=== PATIENT | male | born 1990 | race Caucasian/White ===

== ENCOUNTER 2018-04-10 16:22 | Observation (INO) | payer MEDICAID, SELFPAY ==
--- NOTE | 2018-04-10 16:32 | HP.PCM_ITS ---
Problem List (1) Acute narcotic withdrawal Status: Acute (2) Heroin abuse Status: Acute (3) Xanax use disorder, mild, in sustained remission, abuse Status: Resolved (4) Tobacco use Status: Chronic (5) History of intravenous drug abuse Status: Resolved (6) Anxiety and depression Status: Chronic History of Present Illness Date of Admission: 04/10/18 Chief Complaint: Acute Opiate Withdrawal The patient is a 27 y/o M w/ PMHx: Depression/Anxiety, Tobacco use, History of Cannabis use most recently 3 months prior, History of Xanax abuse most recently 5 years prior, Ongoing Chronic Heroine usage, snorting currently but prior IVDA history w/ usually 1 gm daily who presents to the [facility] at [facility] on 04/10/18 w/ noted opiate withdrawal onset starting this AM following last dose ~ 10 hours prior with abdominal pain/cramping, generalized body aches and pains, rhinorrhea, piloerection, fatigue, restless leg, sweating, yawning. Patient interested in attaining clean status. He has been in treatment similar to current evaluation twice prior. He is currently homeless and living in his car. 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 Past Medical History Past Medical History (Chronic Problems): Chronic Problems Tobacco use (Chronic) Anxiety and depression (Chronic) NKDA Home Medications: Ambulatory Orders Medication Instructions Recorded NK 04/10/18 Surgical History: no surgical history Psychiatric History: Anxiety, Depression Lives: Homeless - Currently living in his car. Smoking Status: Current every day smoker - 1/2 ppd Tobacco Use: Cigarettes Alcohol: None Drugs: Heroin, Marijuana - *Family History Maternal History Items: - - Maternal family history of breast cancer. Paternal History Items: - - Paternal family history of some form of brain cancer. Review of Systems Constitutional: Reports: Anorexia, Malaise, Weakness, Fatigue. Denies: Chills, Fever, Weight Change HEENT: Reports: Nasal Congestion, Post Nasal Drip, Sinus Congestion. Denies: Head Aches, Sinus Drainage Cardiovascular: Denies: Chest Pain, Palpitations Respiratory: Denies: Cough, Shortness of breath at rest, Sputum production Gastrointestinal: Reports: Abdominal Pain, Diarrhea, Nausea. Denies: Vomiting Genitourinary: Denies: Dysuria Musculoskeletal: Reports: Joint Pain, Muscle pain. Denies: Joint Tenderness Skin: Denies: Rash, Wounds Neurological: Denies: Numbness, Tingling, Focal weakness Psychiatric: Reports: Anxiety, Depression. Denies: Homicidal Ideations, Suicidal Ideations Hematologic/ Lymphatic: Denies: Easy Bruising, Easy Bleeding VTE Information - Inpt Only VTE Present on Admission: No VTE Mechan Device Prophylaxis: None VTE Pharm Prophylaxis ordered?: No Reason prophylaxis not ordered:: Treatment Not Indicated Patient Problems: Active and Suspected Problems Acute narcotic withdrawal (Acute) Heroin abuse (Acute) Subjective: Seated upright, anxious, yawning, mildly agitated, fatigued appearing. Objective: Physical Examination: General: awake, alert, oriented x 3 and cooperative, seated upright, fatigued and mildly ill appearing, yawning. Skin: normal color, turgor, no icterus, cyanosis. HEENT: AT/NC, EOMI, PERRLA, mildly dry MM, no carotid bruits or JVD noted. Lungs: CTA bilaterally, moderate effort, mild decrease BL bases, no rales, ronchi or wheezing. Heart: Mildly tachycardic regular rate and rhythm; no gallop, rub audible. Abdomen: soft, mild generalized discomfort w/ palpation, ND, mildly hyperactive BS, no HSM. Extremities: no cyanosis, clubbing, or edema. Neurological: patient awake, alert, oriented x 3; cognitive function appears baseline intact; pupils equally reactive to light and accomodation; cranial nerves II-XII grossly normal, moving all 4 extremities, no focal deficits, strength mildly to moderately globally decreased secondary to acute presenta tion. Psychiatric: affect appears fatigued, no acute evidence of depressive or anxiety feelings. Assessment/Plan All Active Problems Acute narcotic withdrawal (Acute) Heroin abuse (Acute) Xanax use disorder, mild, in sustained remission, abuse (Resolved) History of intravenous drug abuse (Resolved) The patient is a 28 y/o M w/ PMHx: Depression/Anxiety, Tobacco use, History of Cannabis use most recently 3 months prior, History of Xanax abuse most recently 5 years prior, Ongoing Chronic Heroine usage, snorting currently but prior IVDA history w/ usually 1 gm daily who presents to the [facility] at [facility] on 04/10/18 w/ noted acute opiate withdrawal. (1) Acute Opiate Withdrawal: Will admit to [place], obtain routine labs including CBC, CMP, urine for drug screen, urinalysis, serum lipase, routine EKG and will initiate and continue on [facility] service protocol with tapering course of Subutex, as needed Seroquel, Librium, Sinemet, Catapres, Bentyl, Vistaril, IV fluids, IV antiemetics, Tylenol as needed for pain. Once patient clinically improved and completion of taper nearing will plan [facility] assistance for transition to next level of rehabilitation care. (2) Polysubstance Abuse, IVDA Hx: Patient notes remote history of prior IVDA, not currently. Will obtain HIV and hepatitis panel. Discussed concept that if returned hepatitis C positive, patient would be a canididate for hep C treatment currently if clean, sober x 6 months, documented attendance NA or AA meetings, counseling and ongoing negative drug screens. Encouraged PCP establishment and follow-up. (3) Tobacco Abuse: Encouraged cessation, inpatient consultation per RT, NR if desired. (4) Anxiety and Depression: Not on treatment, would benefit from consideration SSRI. Need to avoid BZD usage given history. (5) DVT Prophylaxis: Low risk, ambulation. Code Visit Inpatient E&M: 24014 Init Hosp L3
[2018-04-10 16:51] VITALS: BMI 25.0
[2018-04-10 16:58] VITALS: BP 128/91; PULSE 74; RESP 14; TEMP 36.6
[2018-04-10 17:08] LABS: Absolute Lymphocyte Count 3.36 X10^3/ul (0.83-4.51); Absolute Neutrophil Count 3.6 X10^3/uL (2.0-7.7); Basophil# 0.03 X10^3/uL; Basophil% 0.4 % (0-1); Eosinophil# 0.23 X10^3/uL; Eosinophils% 2.9 % (0-5); Hematocrit 42.6 % (40-54); Hemoglobin 14.3 g/dl (13.0-16.5); Lymphocyte # 3.36 X10^3/ul (4.0); Mean Corp Hgb Conc 33.6 g/gl (32-36); Mean Corpuscular Hgb 29.3 pg (27.0-32.0); Mean Corpuscular Volume 87.3 fL (80-94); Mean Platelet Vol. 9.7 fl (6.2-12.0); Monocyte# 0.61 X10^3/uL; Monocyte% 7.8 % (0-10); Neutrophil # 3.55 X10^3/uL (2.7-7.7); Neutrophil % 45.5 % (47-70); Platelet Count 247 K/mm3 (150-450); RBC Distribution Width CV 12.5 % (11.6-14.6); RBC Distribution Width SD 39.9 fl (35.1-43.9); Red Blood Count 4.88 M/mm3 (4.6-6.2); White Blood Count 7.8 K/mm3 (4.4-11.0)
[2018-04-10 17:09] LABS: POSITIVE COUNT NO; POSITIVE DIFFERENTIAL NO; POSITIVE MORPHOLOGY NO
[2018-04-10 17:13] LABS: Prothrombin Time (Protime)PT. 13.1 SECONDS (11.7-14.9)
[2018-04-10] MEDS: Buprenorphine HCl 2 MG TAB.SUBL SL (17:19)
[2018-04-10] MEDS: Lactated Ringers 1,000 ML 125 ML IV (17:37)
[2018-04-10 17:42] LABS: ALB/GLOB Ratio 1.3 RATIO (0.9-2.4); AST(SGOT) 15 U/L (15-37); Alanine Aminotransfer ALT/SGPT 36 U/L (16-61); Alkaline Phosphatase 96 U/L (45-117); Amylase 54 U/L (25-115); Anion Gap 4 (5-15); BUN 13 mg/dL (7-18); BUN/Creat Ratio 17.1 RATIO (10-20); Calcium,Total 8.9 mg/dL (8.5-10.1); Chloride 105 mmol/L (98-107); Creatinine, Serum 0.76 mg/dL (0.70-1.30); EST Glomerular Filtration Rate 131 mL/min (>60); Est Glom Filt Rate - Afr Amer 158 mL/min (>60); Estimated Creatinine Clearance 132.92 ml/min; Globulin 3.1 g/dL (2.2-4.2); Glucose 94 mg/dL (74-106); Lipase 86 U/L (73-393); Potassium 3.8 mmol/L (3.5-5.1); Protein, Total 7.1 g/dL (6.4-8.2); Sodium Level 143 mmol/L (136-145)
[2018-04-10 19:17] LABS: Amphetamine Urine VISTA NEGATIVE (<1000 ng/mL); Barbiturate Urine VISTA NEGATIVE (< 200 ng/mL); Benzodiazepine Urine VISTA NEGATIVE (< 200 ng/mL); Cocaine Urine VISTA NEGATIVE (< 300 ng/mL); Ecstacy Urine VISTA NEGATIVE (< 500 ng/mL); Methadone Urine VISTA NEGATIVE (< 300 ng/mL); PCP Urine VISTA NEGATIVE (< 25 ng/mL); THC Urine VISTA NEGATIVE (< 50 ng/mL); Vista UDS pH Range 6
[2018-04-10 19:55] LABS: Bacteria 0 SEEN /hpf (None Seen); Mucous, Urine 0 SEEN /hpf (<or=2+); Red Blood Cells-Urine 0 SEEN /hpf (0-5); Squamous Epithelial Cells - UA 0 SEEN /hpf (0-5); White Blood Cells 0 SEEN /hpf (0-5)
[2018-04-10 20:03] LABS: Color, Urine Yellow (Yellow); Glucose, Dipstick Normal (Normal); Ketone-Dipstick Negative (Negative); Leukocyte Esterase-Dipstick Negative /ul (Negative); Nitrite-Dipstick Negative (Negative); Occult Blood-Urine Negative /ul (Negative); Protein-Dipstick Negative (Negative); Urine Bilirubin Dipstick Negative (Negative); Urine Clarity Clear (Clear); Urine Urobilinogen Normal (Normal)
[2018-04-10 22:00] VITALS: BP 132/84; PULSE 72; RESP 14; TEMP 36.9
[2018-04-11] VITALS (7 sets, daily range): BP systolic 108–145; BP diastolic 64–86; PULSE 71–81; RESP 14–18; TEMP 36.4–37; O2SAT 97–98
[2018-04-11] MEDS: Buprenorphine HCl 2 MG TAB.SUBL SL ×3 (00:54→16:19)
[2018-04-11] MEDS: Dicyclomine 10 MG Capsule 20 MG PO (00:54)
--- NOTE | 2018-04-11 08:18 | PCM.PN.HOSP ---
Patient Problems: Active and Suspected Problems Acute narcotic withdrawal (Acute) Heroin abuse (Acute) Subjective: Patient is a 28-year-old M with history of polysubstance abuse presented with acute opiate withdrawal patient seen complains of hot and cold sweat as well as cramps in lower extremities and restless legs. Objective: GENERAL: cooperative HEENT: Atraumatic; moist oral mucosa EYES; Anicteric, Normal Conjunctiva NECK; supple, normal thyroid, no distended JVD. RESPIRATORY: Diminished to auscultation bilaterally, CARDIOVASCULAR: Regular S1 S2, no audible murmurs GI: soft, non-tender, normoactive bowel sounds, : No Renal angle tenderness; EXTREMITIES: No edema, no clubbing, no cyanosis. MUSCULOSKELETAL: No Joint Tenderness; no muscle waisting NEURO: Awake; no lateralizing signs. SKIN: No Rash PSYCH; Normal affect Vitals/I&O's: Vital Signs Temp Pulse Resp BP 98.6 F 78 14 108/76 04/11/18 06:00 04/11/18 06:00 04/11/18 06:00 04/11/18 06:00 Weight: 70.307 kg Body Mass Index (BMI) 25.0 Intake and Output for Last 24 Hours 04/09/18 04/10/18 04/11/18 23:59 23:59 23:59 Intake Total 1442 / 1442 Balance 1442 / 1442 Laboratory Results 04/10/18 16:54: WBC 7.8, RBC 4.88, Hgb 14.3, Hct 42.6, MCV 87.3, MCH 29.3, MCHC 33.6, RDW 12.5, RDW Differential 39.9, Plt Count 247, MPV 9.7, Immature Gran % (Auto) 0.400, Neut % (Auto) 45.5 L, Lymph % (Auto) 43.0 H, Fisher % (Auto) 7.8, Eos % (Auto) 2.9, Baso % (Auto) 0.4, Absolute Neuts (auto) 3.6, Absolute Lymphs (auto) 3.36, Total Counted Not Reportable 04/10/18 16:54: PT 13.1, INR 1.0 04/10/18 16:54: Sodium 143, Potassium 3.8, Chloride 105, Carbon Dioxide 34.0 H, Anion Gap 4 L, BUN 13, Creatinine 0.76, Estim Creat Clear Calc 132.92, Est GFR (MDRD) Af Amer 158, Est GFR (MDRD) Non-Af 131, BUN/Creatinine Ratio 17.1, Glucose 94, Calcium 8.9, Total Bilirubin 0.40, AST 15, ALT 36, Alkaline Phosphatase 96, Total Protein 7.1, Albumin 4.0, Globulin 3.1, Albumin/Globulin Ratio 1.3, Amylase 54, Lipase 86 04/10/18 16:54: Ethyl Alcohol 11.0 04/10/18 18:40: Urine Opiates Screen POSITIVE H, Urine Methadone Screen NEGATIVE, Ur Barbiturates Screen NEGATIVE, Ur Phencyclidine Scrn NEGATIVE, Ur Amphetamines Screen NEGATIVE, U Methamphetamin-MDMA NEGATIVE, U Benzodiazepines Scrn NEGATIVE, Urine Cocaine Screen NEGATIVE, U Cannabinoids Screen NEGATIVE, Ur Drug Screen Comment 04/10/18 18:40: Urine Color Yellow, Urine Clarity Clear, Urine pH 6.0, Ur Specific [place] 1.020, Urine Protein Negative, Urine Glucose (UA) Normal, Urine Ketones Negative, Urine Occult Blood Negative, Urine Nitrite Negative, Urine Bilirubin Negative, Urine Urobilinogen Normal, Ur Leukocyte Esterase Negative, Urine RBC 0 SEEN, Urine WBC 0 SEEN, Ur Squamous Epith Cells 0 SEEN, Urine Bacteria 0 SEEN, Urine Mucus 0 SEEN Current Medications Acetaminophen (Tylenol) 500 mg PO Q4H PRN PRN PRN Reason: Temp > 100.4 F Al Hydroxide/Mg Hydroxide (Mylanta Ii) 30 ml PO Q6H PRN PRN PRN Reason: dyspesia Bisacodyl (Dulcolax) 10 mg RECTAL DAILY PRN PRN Reason: Constipation Buprenorphine HCl (Buprenorphine Hcl) 4 mg SL Q8H BARB; Taper Stop: 04/13/18 20:59 Last Admin: 04/11/18 00:54 Dose: 4 mg Chlordiazepoxide (Librium) 25 mg PO Q6H PRN PRN PRN Reason: Moderate-Severe Anxiety Clonidine (Catapres) 0.1 mg PO Q2H PRN PRN PRN Reason: Hot/Cold Sweats or Anxiety Dicyclomine HCl (Bentyl) 20 mg PO Q6H PRN PRN PRN Reason: Abdomnial Discomfort Last Admin: 04/11/18 00:54 Dose: 20 mg Hydroxyzine HCl (Vistaril Vial) 50 mg IM Q6H PRN PRN PRN Reason: Breakthrough Anxiety Hydroxyzine Pamoate (Vistaril Pamoate Capsule) 50 mg PO Q6H PRN PRN PRN Reason: Mild Anxiety Ibuprofen (Motrin) 600 mg PO Q8H PRN PRN PRN Reason: Mild-Moderate Pain (1-5/10) Loperamide HCl (Imodium) 2 - 4 mg PO UD PRN PRN Reason: LOOSE STOOLS Magnesium Hydroxide (Milk Of Magnesia) 30 ml PO DAILY PRN PRN PRN Reason: Constipation Methocarbamol (Methocarbamol) 750 mg PO Q6H PRN PRN PRN Reason: Muscle Aches Nicotine (Nicoderm Cq (Pbkc)) 14 mg TRANSDERM. DAILY BARB Ondansetron HCl (Zofran Odt) 4 mg PO Q6H PRN PRN PRN Reason: NAUSEA Pramipexole Dihydrochloride (Mirapex) 0.25 mg PO Q12H PRN PRN PRN Reason: Restless Legs Senna (Senokot) 1 tablet PO QHS PRN PRN Reason: Constipation Sodium Chloride () 5 - 15 ml IV UD PRN PRN Reason: SALINE FLUSH Trazodone HCl (Desyrel) 50 mg PO QHS [facility] Last Admin: 04/10/18 23:30 Dose: Not Given Medical Necessity - Tobacco Use Smoking Status: Current every day smoker Tobacco Use: Cigarettes Assessment/Plan All Active Problems Acute narcotic withdrawal (Acute) Heroin abuse (Acute) Xanax use disorder, mild, in sustained remission, abuse (Resolved) History of intravenous drug abuse (Resolved) Patient is a 28-year-old M with history of polysubstance abuse presented with acute opiate withdrawal 1. Acute opiate withdrawal patient has been admitted to regular nursing floor for medical stabilization using Subutex by the [facility] protocol 2. Polysubstance abuse including opioids marijuana 3. Tobacco dependence counseled on cessation, offered nicotine patch for tobacco cravings 4. History of depression with anxiety 5. DVT prophylaxis low risk did encourage early ambulation Code Visit Inpatient E&M: 82341 [facility] Hosp L3
[2018-04-11] MEDS: hydrOXYzine PAM 25 MG Capsule 50 MG PO (11:34)
[2018-04-11] MEDS: cloNIDine HCl 0.1 MG Tablet PO ×2 (14:09→21:16)
--- NOTE | 2018-04-11 14:39 | NEWVISION ---
Patient has an appointment for PHP Saturday-Saturday at [facility] on 04/18/18 at 8:30 am.
[2018-04-11] MEDS: Pramipexole Di-HCl 0.25 MG Tablet PO (21:16)
[2018-04-11] MEDS: chlordiazePOXIDE 25 MG Capsule PO (21:16)
[2018-04-11] MEDS: traZODone 50 MG Tablet PO (21:16)
[2018-04-12 01:22] VITALS: BP 97/54; PULSE 54; RESP 14; TEMP 36.4
[2018-04-12] MEDS: Buprenorphine HCl 2 MG TAB.SUBL SL ×3 (01:23→21:07)
--- NOTE | 2018-04-12 08:05 | PCM.PN.HOSP ---
Patient Problems: Active and Suspected Problems Acute narcotic withdrawal (Acute) Heroin abuse (Acute) Subjective: Patient seen admit to some improvement in his symptoms Objective: GENERAL: cooperative HEENT: Atraumatic; moist oral mucosa EYES; Anicteric, Normal Conjunctiva NECK; supple, normal thyroid, no distended JVD. RESPIRATORY: Diminished to auscultation bilaterally, CARDIOVASCULAR: Regular S1 S2, no audible murmurs GI: soft, non-tender, normoactive bowel sounds, : No Renal angle tenderness; EXTREMITIES: No edema, no clubbing, no cyanosis. MUSCULOSKELETAL: No Joint Tenderness; no muscle waisting NEURO: Awake; no lateralizing signs. SKIN: No Rash PSYCH; Normal affect Vitals/I&O's: Vital Signs Temp Pulse Resp BP Pulse Ox 97.6 F L 54 L 14 97/54 L 98 04/12/18 01:22 04/12/18 01:22 04/12/18 01:22 04/12/18 01:22 04/11/18 14:00 Oxygen Delivery Method Room Air Weight: 70.307 kg Body Mass Index (BMI) 25.0 Intake and Output for Last 24 Hours 04/10/18 04/11/18 04/12/18 23:59 23:59 23:59 Intake Total 2342 / 2342 500 / 500 Balance 2342 / 2342 500 / 500 Current Medications Acetaminophen (Tylenol) 500 mg PO Q4H PRN PRN PRN Reason: Temp > 100.4 F Al Hydroxide/Mg Hydroxide (Mylanta Ii) 30 ml PO Q6H PRN PRN PRN Reason: dyspesia Bisacodyl (Dulcolax) 10 mg RECTAL DAILY PRN PRN Reason: Constipation Buprenorphine HCl (Buprenorphine Hcl) 2 mg SL Q8H BARB; Taper Stop: 04/13/18 20:59 Last Admin: 04/12/18 01:23 Dose: 2 mg Chlordiazepoxide (Librium) 25 mg PO Q6H PRN PRN PRN Reason: Moderate-Severe Anxiety Last Admin: 04/11/18 21:16 Dose: 25 mg Clonidine (Catapres) 0.1 mg PO Q2H PRN PRN PRN Reason: Hot/Cold Sweats or Anxiety Last Admin: 04/11/18 21:16 Dose: 0.1 mg Dicyclomine HCl (Bentyl) 20 mg PO Q6H PRN PRN PRN Reason: Abdomnial Discomfort Last Admin: 04/11/18 00:54 Dose: 20 mg Hydroxyzine HCl (Vistaril Vial) 50 mg IM Q6H PRN PRN PRN Reason: Breakthrough Anxiety Hydroxyzine Pamoate (Vistaril Pamoate Capsule) 50 mg PO Q6H PRN PRN PRN Reason: Mild Anxiety Last Admin: 04/11/18 11:34 Dose: 50 mg Ibuprofen (Motrin) 600 mg PO Q8H PRN PRN PRN Reason: Mild-Moderate Pain (1-5/10) Loperamide HCl (Imodium) 2 - 4 mg PO UD PRN PRN Reason: LOOSE STOOLS Magnesium Hydroxide (Milk Of Magnesia) 30 ml PO DAILY PRN PRN PRN Reason: Constipation Methocarbamol (Methocarbamol) 750 mg PO Q6H PRN PRN PRN Reason: Muscle Aches Nicotine (Nicoderm Cq (Pbkc)) 14 mg TRANSDERM. DAILY [facility] Last Admin: 04/11/18 08:57 Dose: Not Given Ondansetron HCl (Zofran Odt) 4 mg PO Q6H PRN PRN PRN Reason: NAUSEA Pramipexole Dihydrochloride (Mirapex) 0.25 mg PO Q12H PRN PRN PRN Reason: Restless Legs Last Admin: 04/11/18 21:16 Dose: 0.25 mg Senna (Senokot) 1 tablet PO QHS PRN PRN Reason: Constipation Sodium Chloride () 5 - 15 ml IV UD PRN PRN Reason: SALINE FLUSH Trazodone HCl (Desyrel) 50 mg PO QHS [facility] Last Admin: 04/11/18 21:16 Dose: 50 mg Medical Necessity - Tobacco Use Smoking Status: Current every day smoker Tobacco Use: Cigarettes Assessment/Plan All Active Problems Acute narcotic withdrawal (Acute) Heroin abuse (Acute) Xanax use disorder, mild, in sustained remission, abuse (Resolved) History of intravenous drug abuse (Resolved) Patient is a 28-year-old M with history of polysubstance abuse presented with acute opiate withdrawal 1. Acute opiate withdrawal patient has been admitted to regular nursing floor for medical stabilization using Subutex by the [facility] protocol 2. Polysubstance abuse including opioids marijuana 3. Tobacco dependence counseled on cessation, offered nicotine patch for tobacco cravings 4. History of depression with anxiety 5. DVT prophylaxis low risk did encourage early ambulation Code Visit Inpatient E&M: 53847 Subs Hosp L2
--- NOTE | 2018-04-12 08:08 | PN_ITS ---
Patient Problems: Active and Suspected Problems Acute narcotic withdrawal (Acute) Heroin abuse (Acute) Subjective: Patient seen admit to some improvement in his symptoms Objective: GENERAL: cooperative HEENT: Atraumatic; moist oral mucosa EYES; Anicteric, Normal Conjunctiva NECK; supple, normal thyroid, no distended JVD. RESPIRATORY: Diminished to auscultation bilaterally, CARDIOVASCULAR: Regular S1 S2, no audible murmurs GI: soft, non-tender, normoactive bowel sounds, : No Renal angle tenderness; EXTREMITIES: No edema, no clubbing, no cyanosis. MUSCULOSKELETAL: No Joint Tenderness; no muscle waisting NEURO: Awake; no lateralizing signs. SKIN: No Rash PSYCH; Normal affect Vitals/I&O's: Vital Signs Temp Pulse Resp BP Pulse Ox 97.6 F L 54 L 14 97/54 L 98 04/12/18 01:22 04/12/18 01:22 04/12/18 01:22 04/12/18 01:22 04/11/18 14:00 Oxygen Delivery Method Room Air Weight: 70.307 kg Body Mass Index (BMI) 25.0 Intake and Output for Last 24 Hours 04/10/18 04/11/18 04/12/18 23:59 23:59 23:59 Intake Total 2342 / 2342 500 / 500 Balance 2342 / 2342 500 / 500 Current Medications Acetaminophen (Tylenol) 500 mg PO Q4H PRN PRN PRN Reason: Temp > 100.4 F Al Hydroxide/Mg Hydroxide (Mylanta Ii) 30 ml PO Q6H PRN PRN PRN Reason: dyspesia Bisacodyl (Dulcolax) 10 mg RECTAL DAILY PRN PRN Reason: Constipation Buprenorphine HCl (Buprenorphine Hcl) 2 mg SL Q8H BARB; Taper Stop: 04/13/18 20:59 Last Admin: 04/12/18 01:23 Dose: 2 mg Chlordiazepoxide (Librium) 25 mg PO Q6H PRN PRN PRN Reason: Moderate-Severe Anxiety Last Admin: 04/11/18 21:16 Dose: 25 mg Clonidine (Catapres) 0.1 mg PO Q2H PRN PRN PRN Reason: Hot/Cold Sweats or Anxiety Last Admin: 04/11/18 21:16 Dose: 0.1 mg Dicyclomine HCl (Bentyl) 20 mg PO Q6H PRN PRN PRN Reason: Abdomnial Discomfort Last Admin: 04/11/18 00:54 Dose: 20 mg Hydroxyzine HCl (Vistaril Vial) 50 mg IM Q6H PRN PRN PRN Reason: Breakthrough Anxiety Hydroxyzine Pamoate (Vistaril Pamoate Capsule) 50 mg PO Q6H PRN PRN PRN Reason: Mild Anxiety Last Admin: 04/11/18 11:34 Dose: 50 mg Ibuprofen (Motrin) 600 mg PO Q8H PRN PRN PRN Reason: Mild-Moderate Pain (1-5/10) Loperamide HCl (Imodium) 2 - 4 mg PO UD PRN PRN Reason: LOOSE STOOLS Magnesium Hydroxide (Milk Of Magnesia) 30 ml PO DAILY PRN PRN PRN Reason: Constipation Methocarbamol (Methocarbamol) 750 mg PO Q6H PRN PRN PRN Reason: Muscle Aches Nicotine (Nicoderm Cq (Pbkc)) 14 mg TRANSDERM. DAILY [facility] Last Admin: 04/11/18 08:57 Dose: Not Given Ondansetron HCl (Zofran Odt) 4 mg PO Q6H PRN PRN PRN Reason: NAUSEA Pramipexole Dihydrochloride (Mirapex) 0.25 mg PO Q12H PRN PRN PRN Reason: Restless Legs Last Admin: 04/11/18 21:16 Dose: 0.25 mg Senna (Senokot) 1 tablet PO QHS PRN PRN Reason: Constipation Sodium Chloride () 5 - 15 ml IV UD PRN PRN Reason: SALINE FLUSH Trazodone HCl (Desyrel) 50 mg PO QHS [facility] Last Admin: 04/11/18 21:16 Dose: 50 mg Medical Necessity - Tobacco Use Smoking Status: Current every day smoker Tobacco Use: Cigarettes Assessment/Plan All Active Problems Acute narcotic withdrawal (Acute) Heroin abuse (Acute) Xanax use disorder, mild, in sustained remission, abuse (Resolved) History of intravenous drug abuse (Resolved) Patient is a 28-year-old M with history of polysubstance abuse presented with acute opiate withdrawal 1. Acute opiate withdrawal patient has been admitted to regular nursing floor for medical stabilization using Subutex by the [facility] protocol 2. Polysubstance abuse including opioids marijuana 3. Tobacco dependence counseled on cessation, offered nicotine patch for tobacco cravings 4. History of depression with anxiety 5. DVT prophylaxis low risk did encourage early ambulation Code Visit Inpatient E&M: 83325 Subs Hosp L2
[2018-04-12 09:05] VITALS: BP 116/74; PULSE 73; RESP 16; TEMP 36.9
[2018-04-12 14:06] VITALS: BP 105/67; PULSE 78; RESP 16; TEMP 36.8
[2018-04-12] MEDS: chlordiazePOXIDE 25 MG Capsule PO (14:17)
[2018-04-12 21:08] VITALS: BP 105/61; PULSE 69; RESP 14; TEMP 36.8
[2018-04-13 06:36] VITALS: BP 112/68; PULSE 72; RESP 14; TEMP 36.2
[2018-04-13] MEDS: Buprenorphine HCl 2 MG TAB.SUBL SL (09:14)
[2018-04-13 10:44] VITALS: BP 119/77; PULSE 94; RESP 16; TEMP 37
--- NOTE | 2018-04-13 11:47 | DCINST_ITS ---
- Discharge Diagnoses Current Active Problems: Current Active and Chronic Problems Acute narcotic withdrawal (Acute) Heroin abuse (Acute) Tobacco use (Chronic) Anxiety and depression (Chronic) You will use the following diet at home:: No restrictions Your food should be the consistency of: Regular Your liquids should be the consistency of: Regular/Thin Discharge Activity: Return to Normal Activity Weight Bearing Status: Full weight bearing Additional Instructions: FOLLOW UP WITH SCHEDULED OUTPATIENT DETOX Allergies/Adverse Reactions: Allergies No Known Allergies Allergy (Verified 04/10/18 17:01) Medications to take at Discharge NK 04/10/18 Primary Care Physician: Siva Bell,Out of [Primary Care Provider] - Test Results: Test results from this visit will be discussed in further detail at your follow- up appointment, if applicable.
--- NOTE | 2018-04-13 19:20 | PCM.DC.SUM ---
Discharge Date and Diagnosis Date of Admission: 04/10/18 Date of Discharge: 04/13/18 - Primary Discharge Diagnosis #1 acute opiate withdrawal #2 anxiety and depression #3 #3 Heroin addiction - Secondary Discharge Diagnosis Chronic Problems Tobacco use (Chronic) Anxiety and depression (Chronic) Hospital Course and Treatment Operations: None Procedures: None Summary of Care Provided: The patient is a 27 year old M who was directly admitted to [place] [address] into the medical stabilization program for acute opiate withdrawal. Patient had a history of snorting heroin and had been through detox many times. On admission, patient had many symptoms such as abdominal pain, cramping, generalized body aches, rhinorrhea, sweating, restless legs, and fatigue. He was admitted to [place] [address] and orders were entered using the medical stabilization order set. Arrangements were made for the patient to have follow-up detox as an outpatient starting 04/14/18. Patient had no major complications from his opiate withdrawal during his hospitalization. On 04/13/18, patient was seen and examined: Physical exam: On examination he appeared in good health and spirits. Vital signs as documented. Skin warm and dry and without overt rashes. Neck without JVD. Lungs clear. Heart exam notable for regular rhythm, normal sounds and absence of murmurs, rubs or gallops. Abdomen unremarkable and without evidence of organomegaly, masses, or abdominal aortic enlargement. Extremities nonedematous. Neuro: Cranial nerves II through XII are grossly intact, no focal motor deficits were noted, sensation to light touch and pinprick intact. Psych: Patient is alert and oriented x3, he does not appear anxious or depressed On 04/13/18, patient was seen and examined and felt to be in stable condition for discharge home, he was to follow-up tomorrow with outpatient detox. - Physical Exam Vital Signs Temp Pulse Resp BP Pulse Ox 98.6 F 94 16 119/77 98 04/13/18 10:44 04/13/18 10:44 04/13/18 10:44 04/13/18 10:44 04/11/18 14:00 Oxygen Delivery Method Room Air Weight: 70.307 kg Body Mass Index (BMI) 25.0 Intake and Output for Last 24 Hours 04/11/18 04/12/18 04/13/18 23:59 23:59 23:59 Intake Total 2342 / 2342 500 / 500 500 / 500 Balance 2342 / 2342 500 / 500 500 / 500 Discharge Activity: Return to Normal Activity Weight Bearing Status: Full weight bearing Home Medications: Medications to take at Discharge NK 04/10/18 Primary Care Physician: Siva Bell,Out of [Primary Care Provider] - Disposition: Home Minutes spent on discharge:: 32 Patient Condition:: Stable Medical Necessity - Tobacco Use Smoking Status: Current every day smoker Tobacco Use: Cigarettes Meaningful Use Info Meaningful Use Diagnoses (Choose all that apply): None applicable Code Visit Inpatient E&M: 39495 Disch Hosp
--- NOTE | 2018-04-13 19:24 | DS.PCM_ITS ---
Discharge Date and Diagnosis Date of Admission: 04/10/18 Date of Discharge: 04/13/18 - Primary Discharge Diagnosis #1 acute opiate withdrawal #2 anxiety and depression #3 #3 Heroin addiction - Secondary Discharge Diagnosis Chronic Problems Tobacco use (Chronic) Anxiety and depression (Chronic) Hospital Course and Treatment Operations: None Procedures: None Summary of Care Provided: The patient is a 27 year old M who was directly admitted to [place] [address] into the medical stabilization program for acute opiate withdrawal. Patient had a history of snorting heroin and had been through detox many times. On admission, patient had many symptoms such as abdominal pain, cramping, generalized body aches, rhinorrhea, sweating, restless legs, and fatigue. He was admitted to [place] [address] and orders were entered using the medical stabilization order set. Arrangements were made for the patient to have follow-up detox as an outpatient starting 04/14/18. Patient had no major complications from his opiate withdrawal during his hospitalization. On 04/13/18, patient was seen and examined: Physical exam: On examination he appeared in good health and spirits. Vital signs as documented. Skin warm and dry and without overt rashes. Neck without JVD. Lungs clear. Heart exam notable for regular rhythm, normal sounds and absence of murmurs, rubs or gallops. Abdomen unremarkable and without evidence of organomegaly, masses, or abdominal aortic enlargement. Extremities nonedematous. Neuro: Cranial nerves II through XII are grossly intact, no focal motor deficits were noted, sensation to light touch and pinprick intact. Psych: Patient is alert and oriented x3, he does not appear anxious or depressed On 04/13/18, patient was seen and examined and felt to be in stable condition for discharge home, he was to follow-up tomorrow with outpatient detox. - Physical Exam Vital Signs Temp Pulse Resp BP Pulse Ox 98.6 F 94 16 119/77 98 04/13/18 10:44 04/13/18 10:44 04/13/18 10:44 04/13/18 10:44 04/11/18 14:00 Oxygen Delivery Method Room Air Weight: 70.307 kg Body Mass Index (BMI) 25.0 Intake and Output for Last 24 Hours 04/11/18 04/12/18 04/13/18 23:59 23:59 23:59 Intake Total 2342 / 2342 500 / 500 500 / 500 Balance 2342 / 2342 500 / 500 500 / 500 Discharge Activity: Return to Normal Activity Weight Bearing Status: Full weight bearing Home Medications: Medications to take at Discharge NK 04/10/18 Primary Care Physician: Siva Bell,Out of [Primary Care Provider] - Disposition: Home Minutes spent on discharge:: 32 Patient Condition:: Stable Medical Necessity - Tobacco Use Smoking Status: Current every day smoker Tobacco Use: Cigarettes Meaningful Use Info Meaningful Use Diagnoses (Choose all that apply): None applicable Code Visit Inpatient E&M: 06400 Disch Hosp
== END 2018-04-13 12:05 | disposition home or self-care (01) | DRG 773 ==
PROVIDERS: Admitting Provider Family Medicine; Referring Provider Family Medicine; Visit Provider Internal Medicine
DX: F11.23 Opioid dependence with withdrawal (principal); F17.210 Nicotine dependence, cigarettes, uncomplicated; F32.9 Major depressive disorder, single episode, unspecified; F41.9 Anxiety disorder, unspecified; Z59.0 Homelessness; F12.10 Cannabis abuse, uncomplicated
CPT/HCPCS: 36415; 80053; 80307; 80320; 81001; 82150; 83690; 85025; 85610; 96360; 96361; 99218; 99406; J7120; G0378; G0379; G0480